=== PATIENT | male | born 1975 | race Caucasian/White ===

== ENCOUNTER 2019-04-15 08:49 | Emergency (ER) ==
[2019-04-15 08:59] VITALS: BP 145/103; TEMP 97.7; BMI 32.9
[2019-04-15] MEDS ORDERED: LIDOCAINE HCL 1% SDV IM STA (10:12)
[2019-04-15] MEDS ORDERED: ROCEPHIN IM STA (10:12)
--- NOTE | 2019-04-15 11:19 | CT ---
EXAM: CT neck without contrast HISTORY: Pain, swelling in throat COMPARISON: 04/05/2017 TECHNIQUE: CT neck performed without intravenous contrast. Coronal and sagittal reformatted images obtained. FINDINGS: Mastoid air cells clear. Temporal mandibular joints normally aligned. Paranasal sinuses clear. No acute abnormalities of the bones. Parotid glands unremarkable. Submandibular glands unre markable. Thyroid unremarkable. Lung apices clear. No lymphadenopathy identified in the neck. Alena bes and retrobulbar structures unremarkable. Evaluation of the aerodigestive tract demonstrates no e xophytic mass lesion or area of focal mass effect. Tonsils and adenoids not enlarged. Prevertebral soft tissues appear normal. Epiglottis appears normal. IMPRESSION: No acute abnormality identified in the neck.
--- NOTE | 2019-04-15 11:48 | ED.PDOC ---
General ED Provider: Dr. VIANNEY SHELDON Chief Complaint: Sore Throat Stated Complaint: SORE THROAT Time Seen by Physician: 09:00 Mode of Arrival: Walk-In Information Source: Patient Exam Limitations: No limitations Primary Care Provider: PHOENIX CHAMORRO Nursing and Triage Documentation Reviewed and Agree: Yes Does patient meet sepsis criteria?: No System Inflammatory Response Syndrome: Not Applicable Sepsis Protocol: For patient's 13 years and over: Temp is 96.8 and below OR 101 and greater Pulse >90 BPM Resp >20/minute Acutely Altered Mental Status Are patient's symptoms suggestive of a new infection, such as: -Pneumonia -Skin, Soft Tissue -Endocarditis -UTI -Bone, Joint Infection -Implantable Device -Acute Abdominal Infection -Wound Infection -Meningitis -Blood Stream Catheter Infection -Unknown EENT Complaint Exam - Throat Complaint/Exam Onset/Duration: 1 DAY Symptoms Are: Still present Initial Severity: Moderate Current Severity: Moderate Alleviating: Reports: None Associated Signs and Symptoms: Reports: Cough, Nasal congestion. Denies: Fever , Dysphagia, Drooling, Foreign body sensation, Chills, Wheezing, Hoarseness, Sinus discomfort, Difficulty breathing, Lethargy, Irritability, Decreased activity, Vomiting, Diarrhea, Decreased hearing, Ear drainage Uvula Midline: Yes Lidya-tonsillar Fluctuence: No Scarlatinaform Rash Present: No Lesions: Absent: Lip, Gums, Tongue, Buccal Mucosa, Pharynx Exanthem: Absent: Lip, Gums, Tongue, Buccal Mucosa, Pharynx Vesicles: Absent: Lip, Gums, Tongue, Buccal Mucosa, Pharynx Stridor Present: No Sinus Tenderness Present: No Tonsillar Hypertrophy Present: No Tonsillar Exudate Present: No Lidya-tonsillar Swelling Present: No Adenopathy Present: No Differential Diagnoses: Pharyngitis Review of Systems - Review Of Systems Constitutional: Reports: No symptoms Eyes: Reports: No symptoms Ears, Nose, Mouth, Throat: Reports: Throat pain Respiratory: Reports: No symptoms Cardiac: Reports: No symptoms GI: Reports: No symptoms : Reports: No symptoms Musculoskeletal: Reports: No symptoms Skin: Reports: No symptoms Neurological: Reports: No symptoms Endocrine: Reports: No symptoms Hematologic/Lymphatic: Reports: No symptoms All Other Systems: Reviewed and Negative Past Medical History - Past Medical History Previously Healthy: Yes Endocrine: Reports: None Cardiovascular: Reports: None Respiratory: Reports: None Hematological: Reports: None Gastrointestinal: Reports: None Genitourinary: Reports: None Neuro/Psych: Reports: None Musculoskeletal: Reports: None Cancer: Reports: None - Surgical History General Surgical History: Reports: None - Family History Family History: Reports: None - Social History Smoking Status: Former smoker Hx Substance Use: No Alcohol Screening: None Physical Exam - Physical Exam Appearance: Well-appearing, No pain distress, Well-nourished Eyes: DUGLAS, EOMI, Conjunctiva clear ENT: Erythema, Exudate Respiratory: Airway patent, Breath sounds clear, Breath sounds equal, Respirations nonlabored Cardiovascular: RRR, Pulses normal, No rub, No murmur GI/: Soft, Nontender, No masses, Bowel sounds normal, No Organomegaly Musculoskeletal: Normal strength, ROM intact, No edema, No calf tenderness Skin: Warm, Dry, Normal color Neurological: Sensation intact, Motor intact, Reflexes intact, Cranial nerves intact, Alert, Oriented Psychiatric: Affect appropriate, Mood appropriate Critical Care Note - Critical Care Note Total Time (mins): 0 Course - Course Orders, Labs, Meds: Orders Category Date Time Status Ceftriaxone Sodium [Rocephin] MEDS 04/15/19 10:12 Discontinued 1 gm IM ONCE STA Lidocaine HCl/Pf [Lidocaine HCl 1% Sdv] MEDS 04/15/19 10:12 Discontinued 2.1 ml IM ONCE STA CT SOFT TISSUE NECK W/O CONTR Stat RADS 04/15/19 10:11 Completed Medications Discontinued Medications Generic Name Dose Route Start Last Admin Trade Name Freq PRN Reason Stop Dose Admin Ceftriaxone Sodium 1 gm 04/15/19 10:12 04/15/19 10:51 Rocephin IM 04/15/19 10:13 1 gm ONCE STA Administration Lidocaine HCl 2.1 ml 04/15/19 10:12 04/15/19 10:50 Lidocaine Hcl 1% Sdv IM 04/15/19 10:13 2.1 ml ONCE STA Administration Vital Signs: Temp Pulse Resp BP Pulse Ox 04/15/19 08:49 97.7 F 85 20 145/103 H 96 Departure - Departure Time of Disposition: 11:47 Disposition: HOME SELF-CARE Discharge Problem: Sore throat symptom Pharyngitis Qualifiers: Pharyngitis/tonsillitis etiology: unspecified etiology Qualified Code(s): J02.9 - Acute pharyngitis, unspecified Instructions: Pharyngitis (ED) Condition: Good Pt referred to PMD for follow-up: Yes IPMP verified?: No Additional Instructions: Please call your Family Physician as soon as possible to schedule a follow-up appointment. Prescriptions: Amoxicillin 500 mg PO Q6HR #30 tablet Allergies/Adverse Reactions: Allergies No Known Allergies Allergy (Unverified 04/15/19 09:00) Home Medications: Ambulatory Orders Amoxicillin 500 mg PO Q6HR #30 tablet 04/15/19 Amoxicillin 500 mg PO Q6HR #40 tablet 04/15/19 Indomethacin [Indocin] 25 mg PO TIDWM 04/15/19
== END 2019-04-15 11:55 | disposition home or self-care (01) ==
LOC: ED 08:49
DX: J02.9 Acute pharyngitis, unspecified (principal)
CPT/HCPCS: 96372; 99283